=== PATIENT | male | born 1975 | race Caucasian/White ===

== ENCOUNTER 2017-09-21 08:01 | Emergency (ER) | END 2017-09-21 10:20 | disposition home or self-care (01) ==

== ENCOUNTER 2017-10-27 02:56 | Emergency (ER) | END 2017-10-27 06:19 | disposition left against medical advice (07) ==

== ENCOUNTER 2017-11-25 09:22 | Inpatient (IN) | END 2017-11-27 13:15 | disposition home or self-care (01) | DRG 897 ==